=== PATIENT | female | born 1995 | race Caucasian/White ===

== ENCOUNTER → 2019-02-13 08:41 | Outpatient (CLI) | payer BC | END | disposition home or self-care (01) | LOC: D.US 08:41 | PROVIDERS: ATTEND Family Medicine | DX: E04.1 Nontoxic single thyroid nodule (principal) ==

== ENCOUNTER 2019-09-22 18:20 | Emergency (ER) | payer OTHER ==
[~2019-09-22] VITALS: Ht 162.6 cm; Wt 118.2 kg
[2019-09-22 18:26] VITALS: Ht 162.6 cm; Wt 118.2 kg
[2019-09-22 18:53] LABS: HCG URINE NEGATIVE (NEGATIVE)
[2019-09-22] MEDS ORDERED: TORADOL10 MG PO (20:37)
[2019-09-22 21:18] VITALS: BP 124/71
== END 2019-09-22 21:08 | disposition home or self-care (01) ==
LOC: D.ER 18:20
PROVIDERS: Family Medicine
DX: R51 Headache (principal); M54.2 Cervicalgia; V49.9XXA Car occupant (driver) (passenger) injured in unspecified traffic accident, initial encounter

== ENCOUNTER 2021-02-19 14:38 | Emergency (ER) | payer OTHER ==
[~2021-02-19] VITALS: Ht 162.6 cm; Wt 113.6 kg
[~2021-02-19 14:38] MED LIST: TORADOL10 MG PO
[2021-02-19 14:53] VITALS: BP 120/69; Ht 162.6 cm; Wt 113.6 kg
[2021-02-19 15:28] LABS: BILIRUBIN NEGATIVE (NEGATIVE); KETONE NEGATIVE (NEGATIVE); NITRITE NEGATIVE (NEGATIVE); UROBILINOGEN NORMAL mg/dL (< 2)
[2021-02-19 15:33] LABS: HCG SERUM NEGATIVE (NEGATIVE)
[2021-02-19 15:34] LABS: BASOPHILS 0.1 % (0-2); EOSINOPHILS 1.1 % (0-7); HEMOGLOBIN 13.9 g/dL (12-16); IMMATURE GRANULOCYTES 0.5 % (0-5); LYMPHOCYTES 27.1 % (15-50); MCH 30.7 pg (26.0-34.0); MCHC 33.1 g/dL (31.0-37.0); MCV 92.7 fL (80.0-100.0); MEAN PLATELET VOLUME 10.5 fL (7.4-10.4); MONOCYTES 5.1 % (2-11); NEUTROPHIL ABS# 6.33 10x3/uL (1.56-6.13); NEUTROPHILS 66.1 % (40-80); RBC 4.53 10x6/uL (4.00-5.40); RDW 13.2 % (11.5-14.5); WBC 9.6 10x3/uL (4.8-10.8)
[2021-02-19 15:37] LABS: PLATELET COUNT 302 10x3/uL (130-400)
[2021-02-19 15:43] LABS: CALC OSMOLALITY 278 mosm/kg (275-300); CALCIUM 8.6 mg/dL (8.5-10.1); CARBON DIOXIDE 26.9 mmol/L (21.0-32.0); CHLORIDE - SERUM 106 mmol/L (98-107); CREATININE - SERUM 0.9 mg/dL (0.6-1.3); GLUCOSE 90 mg/dL (74-106); POTASSIUM - SERUM 3.8 mmol/L (3.5-5.1); SODIUM 141 mmol/L (136-145); UREA NITROGEN 8 mg/dL (7-18); eGFR NON AFRICAN AMERICAN 80 mL/min (90-120)
[2021-02-19 15:49] LABS: ALBUMIN 3.6 g/dL (3.4-5.0); ALKALINE PHOSPHATASE 97 U/L (30-120); ALT (SGPT) 31 U/L (10-68); BILIRUBIN - TOTAL 0.24 mg/dL (0.2-1.3); PROTEIN - SERUM 6.5 g/dL (6.4-8.2)
[2021-02-19] MEDS ORDERED: BACLOFEN20 M1 PO (16:03)
[2021-02-19] MEDS ORDERED: VOLTAREN75 MG PO (16:03)
== END 2021-02-19 16:54 | disposition home or self-care (01) ==
LOC: D.ER 14:38
PROVIDERS: Family Medicine
DX: M54.5 Low back pain (principal); M79.10 Myalgia, unspecified site